=== PATIENT | female | born 1995 | race Two or more races ===

== ENCOUNTER 2022-06-16 17:56 | Emergency (ER) | payer BC ==
[~2022-06-16] VITALS: Ht 162.6 cm; Wt 84.8 kg
== END 2022-06-16 21:11 | disposition home or self-care (01) ==
LOC: ER 17:56
DX: T76.21XA Adult sexual abuse, suspected, initial encounter (principal); X58.XXXA Exposure to other specified factors, initial encounter; Y93.9 Activity, unspecified; Y92.9 Unspecified place or not applicable; Y99.9 Unspecified external cause status; A64 Unspecified sexually transmitted disease